=== PATIENT | female | born 1985 | race African-American/Black ===

== ENCOUNTER 2017-02-02 09:34 | Emergency (ER) | payer OTHER ==
[~2017-02-02] VITALS: Ht 162.6 cm; Wt 55.0 kg
[2017-02-02] MEDS ORDERED: IBUPROFEN 800MG TABLET PO ONE (10:30)
[2017-02-02 10:33] VITALS: BP 130/79
== END 2017-02-02 12:40 | disposition home or self-care (01) ==
LOC: ER 10:04
DX: S92.345A Nondisplaced fracture of fourth metatarsal bone, left foot, initial encounter for closed fracture (principal); S92.355A Nondisplaced fracture of fifth metatarsal bone, left foot, initial encounter for closed fracture; J45.909 Unspecified asthma, uncomplicated; F17.210 Nicotine dependence, cigarettes, uncomplicated; F12.10 Cannabis abuse, uncomplicated; X58.XXXA Exposure to other specified factors, initial encounter; Y92.013 Bedroom of single-family (private) house as the place of occurrence of the external cause
CPT/HCPCS: 29515; 73610; 73630; 81025; 99284; Z7610

== ENCOUNTER 2021-12-05 12:11 | Emergency (ER) | payer OTHER ==
[~2021-12-05] VITALS: Ht 157.5 cm; Wt 65.0 kg
[2021-12-05] MEDS ORDERED: GABAPENTIN 300MG CAPSULE PO ONE (15:45)
[2021-12-05] MEDS ORDERED: KETOROLAC 60MG/2ML VIAL IM ONE (15:45)
[2021-12-05] MEDS ORDERED: GABA-532 MT (16:36)
[2021-12-05 16:45] VITALS: BP 111/68
== END 2021-12-05 16:53 | disposition home or self-care (01) ==
LOC: ER 12:11
DX: G62.9 Polyneuropathy, unspecified (principal)
CPT/HCPCS: 81025; 82962; 96372; 99283; J1885

== ENCOUNTER 2025-10-10 15:56 | Emergency (ER) | payer MEDICAID, OTHER ==
[~2025-10-10] VITALS: Ht 165.1 cm; Wt 39.0 kg
[~2025-10-10 15:56] MED LIST: GABA-1180 MT
[2025-10-10 15:58] VITALS: TEMP 98.2; O2SAT 99
[2025-10-10] MEDS: GABAPENTIN 300MG CAPSULE PO ONE (16:30)
[2025-10-10 16:39] LABS: BASOPHILS % 0.2 % (0.0-2.0); EOSINOPHILS % 1.3 % (0.0-5.0); HEMATOCRIT. 36.0 % (36.0-48.0); HEMOGLOBIN. 11.7 g/dL (12.0-16.0); LYMPHOCYTES % 9.9 % (20.0-50.0); MEAN PLATELET VOLUME 8.7 fl (7.4-10.4); MONOCYTES % 5.1 % (2.0-8.0); NEUTROPHILS % 83.5 % (40.0-76.0); PLATELET 448 x1000/uL (130-400); RED BLOOD CELL COUNT 3.84 mill/uL (4.2-5.4); RED CELL DISTRIBUTION WIDTH 14.7 % (11.6-14.6)
[2025-10-10 16:51] VITALS: BP 113/59; PULSE 85; RESP 12; O2SAT 100
[2025-10-10 16:52] LABS: HCG SCREEN NEGATIVE
[2025-10-10 16:53] LABS: CREATININE 0.9 mg/dL (0.6-1.0)
[2025-10-10 16:54] LABS: ETHANOL BLOOD < 10 mg/dL (<10); UREA NITROGEN BLOOD 14 mg/dL (9-23)
[2025-10-10 16:56] LABS: ASPARTATE AMINOTRANSFERASE 93 IU/L (<34); BILIRUBIN DIRECT 0.1 mg/dL (<=3.0); BILIRUBIN TOTAL 0.2 mg/dL (0.1-1.0); PROTEIN TOTAL 7.3 g/dL (6.0-8.3)
[2025-10-10] MEDS: IBUPROFEN 600MG TABLET PO ONE (17:48)
[2025-10-10 18:25] LABS: *AMPHETAMINES SCREEN URINE NEGATIVE (NEGATIVE); *BARBITURATES SCREEN URINE NEGATIVE (NEGATIVE); *BENZODIAZEPINES SCREEN URINE NEGATIVE (NEGATIVE); *COCAINE SCREEN URINE NEGATIVE (NEGATIVE); CANNABINOID URINE SCREEN PRESUMPTIVE POSITIVE (NEGATIVE); ECSTASY MDMA SCREEN URINE NEGATIVE (NEGATIVE); METHADONE URINE SCREEN NEGATIVE (NEGATIVE); OPIATES URINE SCREEN PRESUMPTIVE POSITIVE (NEGATIVE); PHENCYCLIDINE URINE SCREEN NEGATIVE (NEGATIVE)
== END 2025-10-10 19:24 | disposition home or self-care (01) ==
LOC: ER 15:56
DX: R53.1 Weakness (principal); F12.90 Cannabis use, unspecified, uncomplicated; E11.9 Type 2 diabetes mellitus without complications; Z79.899 Other long term (current) drug therapy
CPT/HCPCS: 36415; 80048; 80076; 80305; 80320; 82140; 82550; 84703; 85025; 93005; 99284; G0480